=== PATIENT | female | born 1990 | race Caucasian/White ===

== ENCOUNTER 2018-01-22 10:37 | Emergency (ER) | payer OTHER ==
[2018-01-22 10:41] VITALS: BP 142/82
[2018-01-22 11:53] LABS: Basophils # (Auto) 0.1 K/mm3 (0.0-0.1); Basophils % (Auto) 0.9 % (0.0-1.8); Eosinophils # (Auto) 0.1 K/mm3 (0.0-0.4); Eosinophils % (Auto) 1.7 % (0.0-4.3); Hematocrit 38.1 % (30.3-42.9); Hemoglobin 12.5 gm/dl (10.1-14.3); Lymphocytes % (Auto) 26.4 % (13.4-35.0); Mean Corpuscular HGB Conc 33 % (30-34); Mean Corpuscular Hemoglobin 26 pg (28-32); Mean Corpuscular Volume 79 fl (79-97); Monocytes # (Auto) 0.5 K/mm3 (0.0-0.8); Platelet Count 337 K/mm3 (140-440); Red Cell Distribution Width 15.6 % (13.2-15.2)
[2018-01-22 12:14] LABS: HCG Qualitative,Urine Positive (Negative)
[2018-01-22 12:16] LABS: Alanine Aminotransferase 18 units/L (7-56); Albumin 3.8 g/dL (3.9-5); BUN/Creatinine Ratio 17; Blood Urea Nitrogen 5 mg/dL (7-17); Hemolysis Index 3; Lipase 18 units/L (13-60)
[2018-01-22 12:18] LABS: Bacteria,Urine 1+ /HPF (Negative); Bilirubin,Urine NEG (Negative); Blood,Urine NEG (Negative); Color,Urine Yellow (Yellow); Mucus,Urine FEW /HPF; Protein,Urine <15 mg/dL mg/dL (Negative); Urobilinogen,Urine < 2.0 mg/dL (<2.0)
--- NOTE | 2018-01-22 13:33 | Emergency Department Report ---
ED Abdominal Pain HPI - General Chief Complaint: Abdominal Pain Stated Complaint: PAIN/ABD Time Seen by Provider: 01/22/18 11:07 Source: patient Mode of arrival: Ambulatory Limitations: No Limitations - History of Present Illness MD Complaint: abdominal pain Location: suprapubic Radiation: L flank Migration to: no migration Severity scale (0 -10): 9 (current pain zero) Quality: cramping Consistency: now resolved Improves With: nothing Worsens With: nothing Associated Symptoms: nausea, vomiting. denies: diarrhea, fever, chills, constipation, dysuria, hematemesis, hematochezia, melena, hematuria, anorexia, syncope - Related Data LMP (females 10-50): unknown (reluctant to speak repeatedly looks at the company in the room with her , however, does not want them removed) Previous Rx's Medication Instructions Recorded Last Taken Type Pnv No.118/Iron Fumarate/FA 1 each PO QDAY #30 tab.chew 01/22/18 Unknown Rx [ 19 Chewable] Allergies Allergy/AdvReac Type Severity Reaction Status Date / Time No Known Allergies Allergy Unverified 01/22/18 10:40 ED Review of Systems ROS: Stated complaint: PAIN/ABD Other details as noted in HPI Constitutional: denies: chills, fever Eyes: denies: eye pain, eye discharge, vision change ENT: denies: ear pain, throat pain Respiratory: denies: cough, shortness of breath, wheezing Cardiovascular: denies: chest pain, palpitations Endocrine: no symptoms reported Gastrointestinal: abdominal pain, nausea, vomiting. denies: diarrhea Genitourinary: denies: urgency, dysuria, discharge Musculoskeletal: denies: back pain, joint swelling, arthralgia Skin: denies: rash, lesions Neurological: denies: headache, weakness, paresthesias Psychiatric: denies: anxiety, depression Hematological/Lymphatic: denies: easy bleeding, easy bruising ED Past Medical Hx - Past Medical History Previous Medical History?: No - Surgical History Past Surgical History?: No - Social History Smoking Status: Never Smoker Substance Use Type: None - Medications Home Medications: Home Medications Medication Instructions Recorded Confirmed Last Taken Type Pnv No.118/Iron Fumarate/FA 1 each PO QDAY #30 tab.chew 01/22/18 Unknown Rx [ 19 Chewable] ED Physical Exam - General Limitations: No Limitations General appearance: alert, in no apparent distress - Head Head exam: Present: atraumatic, normocephalic - Eye Eye exam: Present: normal appearance - ENT ENT exam: Present: mucous membranes moist - Neck Neck exam: Present: normal inspection - Respiratory Respiratory exam: Present: normal lung sounds bilaterally. Absent: respiratory distress - Cardiovascular Cardiovascular Exam: Present: regular rate, normal rhythm. Absent: systolic murmur, diastolic murmur, rubs, gallop - GI/Abdominal GI/Abdominal exam: Present: soft, tenderness (right lower inguinal region), normal bowel sounds, other (no Zarate sign. No Tavares Gold no Travis. Abdomen is nondistended, nonrigid). Absent: guarding, hyperactive bowel sounds , hypoactive bowel sounds, organomegaly, mass, bruit, pulsatile mass - Extremities Exam Extremities exam: Present: normal inspection, full ROM, normal capillary refill - Back Exam Back exam: Present: normal inspection, CVA tenderness (L). Absent: CVA tenderness (R), paraspinal tenderness, vertebral tenderness - Neurological Exam Neurological exam: Present: alert, oriented X3, CN II-XII intact, normal gait - Psychiatric Psychiatric exam: Present: normal affect, normal mood - Skin Skin exam: Present: warm, dry, intact, normal color. Absent: rash ED Course Vital Signs 01/22/18 10:40 Temperature 97.6 F Pulse Rate 86 Respiratory 17 Rate Blood Pressure 142/82 [Right] O2 Sat by Pulse 99 Oximetry ED Medical Decision Making - Lab Data Result diagrams: 01/22/18 11:41 01/22/18 11:41 Critical care attestation.: If time is entered above; I have spent that time in minutes in the direct care of this critically ill patient, excluding procedure time. ED Disposition Clinical Impression: Disposition: DC-01 TO HOME OR SELFCARE Is pt being admited?: No Does the pt Need Aspirin: No Condition: Stable Instructions: Abdominal Pain (ED), (ED), Acute Nausea and Vomiting ( ED) Prescriptions: Pnv No.118/Iron Fumarate/FA [ 19 Chewable] 1 each PO QDAY #30 tab.chew
--- NOTE | 2018-01-22 14:23 | Ultrasound Report ---
ULTRASOUND OB LESS THAN 14 WEEKS - TRANSABDOMINAL AND TRANSVAGINAL INDICATION: , right pelvic pain. COMPARISON: None similar at this institution. FINDINGS: Transabdominal and transvaginal pelvic sonography performed in this patient with LMP of 11/30/2017 and estimated menstrual age of 7 weeks and 4 days. It demonstrates an anteverted, gravid uterus estimated at 9.9 x 6.2 x 7.1 cm with a single, viable intrauterine gestation with heart rate of 142 beats per minute. Mean crown-rump length of 0.78 cm corresponds to 6 weeks and 5 days. Moderate to large, 4.4 x 1 x 0.9 cm hypoechoic probable subchorionic hemorrhage noted adjacent to the gestational sac as on endovaginal image 30. No significant pelvic free fluid. Closed cervix. Unremarkable 3.2 x 2.2 x 2.4 cm right ovary. Left ovary not visualized. CONCLUSION: 1. Single, live intrauterine gestation with an ultrasound estimated age of 6 weeks and 5 days and ARABELLA of 09/12/2018. 2. Other findings, including a subchorionic hemorrhage and nonvisualized left ovary, as above. Thank you for the opportunity to participate in this patient's care.
== END 2018-01-22 15:32 | disposition home or self-care (01) ==
LOC: ED 10:37
DX: O26.899 Other specified pregnancy related conditions, unspecified trimester (principal)
CPT/HCPCS: 36415; 76801; 76817; 80053; 81001; 81025; 83690; 84702; 85025